=== PATIENT | female | born 1995 | race Caucasian/White ===

== ENCOUNTER 2021-09-09 01:28 | Observation (INO) ==
[2021-09-09 02:38] LABS: Bacteria,Urine Few per hpf (None-Few); Bilirubin,Urine Negative (Negative); Blood,Urine Negative (Negative); Clarity,Urine Turbid (Clear); Color,Urine Yellow (Yellow); Glucose,Urine (UA) Normal (Normal); Ketones,Urine Negative (Negative); Leukocyte Esterase,Urine Negative (Negative); Mucus,Urine Many per lpf (None-Few); Nitrite,Urine Negative (Negative); PH,Urine 7.5 pH Units (5.0-8.0); Protein,Urine 100 mg/dL (Neg-Trace); Specific Gravity,Urine > 1.030 (1.010-1.025); Squamous Epithelial Cell,Urine Moderate per hpf (None-Few); Urobilinogen,Urine Normal (Normal)
[2021-09-09 02:50] LABS: Basophils # 0.1 K/mcL (0.0-0.2); Basophils % 0.5 %; Eosinophils # 0.1 K/mcL (0.0-0.6); Eosinophils % 1.4 %; Hematocrit 39.1 % (35.3-44.9); Immature Granulocytes % 0.2 % (0-4); Lymphocytes # 2.3 K/mcL (0.6-4.6); Lymphocytes % 24.3 %; Mean Corpuscular HGB Conc 33.2 g/dL (31.6-35.5); Mean Corpuscular Hemoglobin 30.2 pg (28.0-33.3); Mean Corpuscular Volume 90.7 fL (83.0-100.0); Mean Platelet Volume 12.1 fL (9.4-12.4); Monocytes # 0.6 K/mcL (0.0-1.3); Monocytes % 6.9 %; Neutrophils # 6.2 K/mcL (1.6-8.9); Platelet Count 280 K/mcL (140-400); Red Blood Count 4.31 M/mcL (3.82-4.97); Red Cell Distribution Width 12.8 % (11.5-14.5); Segmented Neutrophils % 66.7 %; White Blood Count 9.3 K/mcL (4.3-11.1)
[2021-09-09] MEDS ORDERED: Iopamidol - 370 500 ML MLS IVP ONE ×2 (02:50→14:34)
[2021-09-09] MEDS ORDERED: Morphine Sulfate 2 MG/ML SYRINGE IVP ONE (02:50)
[2021-09-09] MEDS ORDERED: Ringers Solution, Lactated 1,000 ML IVC ONE (02:54)
[2021-09-09 03:12] LABS: Alanine Aminotransferase 8 Units/L (7-52); Albumin 4.3 g/dL (3.5-5.7); Albumin/Globulin Ratio 1.2 (1.1-2.2); Alkaline Phosphatase 88 Units/L (34-104); Aspartate Amino Transferase 20 Units/L (13-39); BUN/Creatinine Ratio 21 (6-26); Bilirubin,Indirect 0.3 mg/dL (0.0-1.0); Bilirubin,Total 0.3 mg/dL (0.3-1.0); Blood Urea Nitrogen 16 mg/dL (6-20); Calcium 9.7 mg/dL (8.6-10.3); Carbon Dioxide 21 mEq/L (23-29); Chloride 105 mEq/L (98-107); Globulin 3.5 g/dL (2.4-3.5); Glucose 92 mg/dL (70-105); Large Platelets Present (Not Present); Lipase 17 Units/L (11-82); Osmolality,Calculated 287 (280-300); Potassium 4.3 mEq/L (3.5-5.1); Sodium 138 mEq/L (136-145); Total Protein 7.8 g/dL (6.4-8.9); eGFR For African Americans > 60 (> 60); eGFR For Non-African Americans > 60 (> 60)
[2021-09-09] MEDS ORDERED: *HR* HYDROmorphone 2 MG/ML SYRINGE IVP ONE (03:45)
[2021-09-09] MEDS ORDERED: *HR* LORazepam 2 MG/ML VIAL ONE (04:26)
[2021-09-09] MEDS ORDERED: *HR* LORazepam 2 MG/ML VIAL IVP ONE (04:33)
[2021-09-09] MEDS ORDERED: polyethylene glycoL 3350 17 GM POWD.PACK PO ONE (06:33)
[2021-09-09 08:38] LABS: Acetaminophen < 10 mcg/mL (10-20); Ethanol < 10 mg/dL (Less than 10); Salicylate < 2.5 mg/dL (15.0-30.0)
[2021-09-09 08:55] LABS: Influenza A PCR Negative (Negative); Influenza B PCR Negative (Negative); Resp. Syncytial Virus PCR Negative (Negative)
[2021-09-09 09:02] LABS: SARS-CoV-2 by PCR (In House) Negative (Negative)
[2021-09-09 09:52] LABS: Amphetamine Screen,Urine Negative ng/mL (Cutoff=1000); Barbiturate Screen,Urine Negative ng/mL (Cutoff=200); Benzodiazepines Screen,Urine Negative ng/mL (Cutoff=200); Cannabinoid Screen,Urine Negative ng/mL (Cutoff = 50); Cocaine Screen,Urine Negative ng/mL (Cutoff= 300); Opiate Screen,Urine Negative ng/mL (Cutoff=300); Phencyclidine Screen,Urine Negative ng/mL (Cutoff=25)
[2021-09-09] MEDS ORDERED: diazePAM 10 MG/2 ML SYRINGE IVP ONE (13:02)
[2021-09-09] MEDS ORDERED: Acetaminophen 325 MG TABLET PO PRN (15:46)
[2021-09-09] MEDS ORDERED: Naloxone 0.4 MG/ML INJ IVP PRN (15:46)
[2021-09-09] MEDS ORDERED: *HR* LORazepam 2 MG/ML VIAL IVP PRN (15:48)
[2021-09-09] MEDS: *HR* Heparin 5,000 UNIT/ML VIAL SQ SCH (17:55)
[2021-09-10] MEDS: Lactobacillus 1 EACH CAP.SPRINK PO SCH ×2 (00:13→08:16)
[2021-09-10] MEDS: *HR* Heparin 5,000 UNIT/ML VIAL SQ SCH (06:45)
[2021-09-10 09:02] VITALS: BP 114/76; PULSE 89; TEMP 97.5; O2SAT 97
[2021-09-10] MEDS ORDERED: OXcarbazepine 150 MG TABLET PO SCH (12:30)
[2021-09-10] MEDS ORDERED: Sennosides/Docusate Sodium TABLET PO ONE (13:51)
[2021-09-10] MEDS ORDERED: Ondansetron ODT 4 MG TAB.RAPDIS SL ONE (13:52)
== END 2021-09-10 16:45 | disposition home or self-care (01) ==
LOC: 3ANU 01:28 → EMEROOARM 01:28 → 3ANU 17:22
PROVIDERS: ADMIT Family Medicine; ATTEND Family Medicine